=== PATIENT | female | born 1945 | race Caucasian/White ===

== ENCOUNTER 2022-03-16 10:45 | Outpatient (CLI) | payer MEDICARE ==
[2022-03-16 12:46] LABS: Hemoglobin 14.3 g/dL (12.0-15.5); Mean Corpuscular HGB CONC 33.4 g/dL (32.0-36.0); Mean Corpuscular Hemoglobin 29.6 pg (27.0-33.0); Mean Corpuscular Volume 88.6 fl (81.6-98.3); Mean Platelet Volume 11.1 fl (7.4-10.4); Platelet Count 194 10x3/uL (150-450); RBC Distribution Width 12.1 % (11.5-14.5); Red Blood Cell (RBC) Count 4.83 10x6/uL (3.90-5.03); White Blood Cell (WBC) Count 6.9 10x3/uL (3.5-10.5)
[2022-03-16 13:01] LABS: INR-International Normal Ratio 0.9; PTT 23.1 sec (22.0-33.0); Prothrombin Time 10.1 sec (9.5-12.1)
[2022-03-16 13:13] LABS: Anion Gap 18 mmol/L (10-20); BUN (Urea Nitrogen) 7 mg/dL (9.8-20.1); Calc. Creatinine Clearance 0 mL/min (70-130); Calcium 9.8 mg/dL (7.8-10.44); Carbon Dioxide 26 mmol/L (23-31); Chloride 104 mmol/L (98-107); Glucose 100 mg/dL (83-110); Potassium 4.2 mmol/L (3.5-5.1); Sodium 144 mmol/L (136-145)
[2022-03-16 19:54] LABS: SARS-CoV-2 PCR by NAA Not Detected (NotDetected)
== END 2022-03-16 10:46 | disposition home or self-care (01) ==
LOC: LABBT 10:45
PROVIDERS: ATTEND Urology
DX: Z01.812 Encounter for preprocedural laboratory examination (principal); Z20.822 Contact with and (suspected) exposure to COVID-19
CPT/HCPCS: 80048; 85027; 85610; 85730; U0003; U0005

== ENCOUNTER 2022-03-18 07:21 | Day surgery (SDC) | payer MEDICARE, BC ==
[2022-03-17 11:18] VITALS: BMI 34.2
[2022-03-18] MEDS ORDERED: Ioversol 68 % 50 ML VIAL ONE (10:01)
[2022-03-18] MEDS ORDERED: Levofloxacin 500 mg/D5W 100 ml Premix Bag ONE (10:03)
[2022-03-18] MEDS ORDERED: Fentanyl 100 MCG/2 ML VIAL ONE ×2 (10:06→12:08)
[2022-03-18] MEDS ORDERED: Ondansetron PF 4 MG/2 ML Vial ONE (10:13)
[2022-03-18] MEDS ORDERED: Glycopyrrolate 0.2 MG/ML 5 ML SYRINGE ONE (10:13)
[2022-03-18] MEDS ORDERED: Lidocaine 1% PF 5 ML VIAL ONE (10:13)
[2022-03-18] MEDS ORDERED: PROPOFOL 200 MG/20 ML VIAL ONE (10:13)
[2022-03-18] MEDS ORDERED: Rocuronium Bromide 10 MG/ML (10ML VIAL) ONE (10:13)
[2022-03-18] MEDS ORDERED: Dexamethasone 20 MG/5 ML VIAL ONE (10:13)
[2022-03-18] MEDS ORDERED: Oxybutynin 5 MG TAB ONE (11:30)
[2022-03-18] MEDS ORDERED: Phenazopyridine HCl 100 MG TAB ONE ×2 (11:30→11:33)
[2022-03-18] MEDS ORDERED: hydrALAZINE 20 MG/ML VIAL ONE (12:14)
== END 2022-03-18 13:13 | disposition home or self-care (01) ==
LOC: SDC 07:21
PROVIDERS: ATTEND Urology
PROC: 0TC48ZZ Extirpation of Matter from Left Kidney Pelvis, Via Natural or Artificial Opening Endoscopic (ICD-10-PCS; principal; 2022-03-18)
PROC: 0T778DZ Dilation of Left Ureter with Intraluminal Device, Via Natural or Artificial Opening Endoscopic (ICD-10-PCS; 2022-03-18)
DX: N13.2 Hydronephrosis with renal and ureteral calculous obstruction (principal); I10 Essential (primary) hypertension; E78.5 Hyperlipidemia, unspecified; I25.10 Atherosclerotic heart disease of native coronary artery without angina pectoris; E21.3 Hyperparathyroidism, unspecified; Z79.82 Long term (current) use of aspirin; Z79.899 Other long term (current) drug therapy; Z88.2 Allergy status to sulfonamides
CPT/HCPCS: 74018; 74420; C2617; J0360; J1100; J1956; J2405; J2704; J3010; Q9967

== ENCOUNTER 2022-07-09 08:51 | Outpatient (CLI) | payer MEDICARE, BC | END 2022-07-09 08:52 | disposition home or self-care (01) | LOC: BICULT 08:51 | PROVIDERS: ATTEND Urology | DX: E21.3 Hyperparathyroidism, unspecified (principal); Z86.39 Personal history of other endocrine, nutritional and metabolic disease; K80.20 Calculus of gallbladder without cholecystitis without obstruction | CPT/HCPCS: 76770 ==

== ENCOUNTER 2024-12-04 13:49 | Outpatient (CLI) | payer MEDICARE | END 2024-12-04 13:50 | disposition home or self-care (01) | LOC: BICMAMMO 13:49 | PROVIDERS: ATTEND Family Medicine | DX: N63.12 Unspecified lump in the right breast, upper inner quadrant (principal) | CPT/HCPCS: 76642; 77066; G0279 ==